=== PATIENT | female | born 2000 | race Caucasian/White ===

== ENCOUNTER 2024-03-26 12:30 | Observation (INO) | payer BC ==
--- NOTE | 2024-03-26 13:32 | ED ---
Female Urogenital HPI - General Chief complaint: Urogenital Stated complaint: Vomiting, back pain, cramping Time Seen by Provider: 03/26/24 13:31 Source: patient, RN notes reviewed Mode of arrival: ambulatory Limitations: no limitations - History of Present Illness Initial comments: 23-year-old female presented to the ER for evaluation of left flank and abdominal pain. She states this started around midnight and has been progressively worsening. She states it feels like someone is stabbing her in the back. She does report it has been painful and difficult to urinate since pains onset. She has tried taking [id number] Advil without relief. She denies any constipation, diarrhea, fevers or chills. Patient reports pain makes her feel nauseous and she has had episodes of emesis since midnight. Patient denies a history of kidney stones, hematuria, hematic emesis, chest pain, shortness of breath, cough, congestion or other complaints. Patient denies . - Related Data Home Medications Medication Instructions Recorded Confirmed Omeprazole [PriLOSEC] 20 mg PO DAILY PRN 03/26/24 03/26/24 Allergies Allergy/AdvReac Type Severity Reaction Status Date / Time No Known Allergies Allergy Verified 03/26/24 15:40 Review of Systems ROS Statement: Those systems with pertinent positive or pertinent negative responses have been documented in the HPI. ROS Other: All systems not noted in ROS Statement are negative. Past Medical History Past Medical History: No Reported History Past Surgical History: No Surgical Hx Reported Smoking Status: Current every day smoker Past Alcohol Use History: Occasional Past Drug Use History: Marijuana General Exam Limitations: no limitations General appearance: alert, in no apparent distress Respiratory exam: Present: normal lung sounds bilaterally. Absent: respiratory distress, wheezes, rales, rhonchi, stridor Cardiovascular Exam: Present: regular rate, normal rhythm, normal heart sounds. Absent: systolic murmur, diastolic murmur, rubs, gallop, clicks GI/Abdominal exam: Present: soft, tenderness (Left lower quadrant), normal bowel sounds Back exam: Present: normal inspection, CVA tenderness (L) Neurological exam: Present: alert, oriented X3, CN II-XII intact Skin exam: Present: warm, dry, intact, normal color. Absent: rash Course Vital Signs 03/26/24 03/26/24 13:05 15:25 Temperature 97.7 F Pulse Rate 78 84 Respiratory 18 18 Rate Blood Pressure 124/76 119/75 O2 Sat by Pulse 100 99 Oximetry - Reevaluation(s) Reevaluation #1: 03/26/24 15:45 Case discussed with on-call urology, Dr. Mcallister for admission. Medical Decision Making - Medical Decision Making Was pt. sent in by a medical professional or institution (, PA, PHARMACY RESOURCE TECH, urgent care, hospital, or residential...) When possible be specific @ -No Did you speak to anyone other than the patient for history (EMS, parent, family, police, friend...)? What history was obtained from this source @ -No Did you review nursing and triage notes (agree or disagree)? Why? @ -I reviewed and agree with nursing and triage notes Were old charts reviewed (outside hosp., previous admission, EMS record, old EKG, old radiological studies, urgent care reports/EKG's, residential records)? Report findings @ -No old charts were reviewed Differential Diagnosis (chest pain, altered mental status, abdominal pain women, abdominal pain men, vaginal bleeding, weakness, fever, dyspnea, syncope, headache, dizziness, GI bleed, back pain, seizure, CVA, palpatations, mental health, musculoskeletal)? @ -Differential Back Pain: Strain, zoster, cauda equina syndrome, epidural abscess, vertebral osteomyelitis, discitis, fracture, subluxation, disc herniation, DJD, spinal stenosis, dissection, AAA, pancreatitis, peptic ulcer disease, pyelonephritis, kidney stone, this is not meant to be an all-inclusive list. EKG interpreted by me (3pts min.). @ -None done X-rays interpreted by me (1pt min.). @ -None done CT interpreted by me (1pt min.). @ -CT abdomen pelvis showing a 3 mm calculus in the urinary bladder with left- sided hydroureteronephrosis. Nonobstructing left renal calculi noted as well. U/S interpreted by me (1pt. min.). @ -None done What testing was considered but not performed or refused? (CT, X-rays, U/S, labs)? Why? @ -None What meds were considered but not given or refused? Why? @ -None Did you discuss the management of the patient with other professionals (professionals i.e. , [facility], PHARMACY RESOURCE TECH, lab, RT, psych nurse, social science instructor, quarter backer, teacher, optics technical officer, case finishing machine adjuster)? Give summary @ -Yes, case discussed with on-call urology, , for admission. Was smoking cessation discussed for >3mins.? @ -No Was critical care preformed (if so, how long)? @ -No Were there social determinants of health that impacted care today? How? (Homelessness, low income, unemployed, alcoholism, drug addiction, transportation, low edu. Level, literacy, decrease access to med. care, assisted, rehab)? @ -Yes, patient has not followed up with a PCP in many years. Was there de-escalation of care discussed even if they declined (Discuss DNR or withdrawal of care, Hospice)? DNR status @ -No What co-morbidities impacted this encounter? (DM, HTN, Smoking, COPD, CAD, Cancer, CVA, ARF, Chemo, Hep., AIDS, mental health diagnosis, sleep apnea, morbid obesity)? @ -None Was patient admitted / discharged? Hospital course, mention meds given and route, prescriptions, significant lab abnormalities, going to OR and other pertinent info. @ -Admitted. 23-year-old female presented to ER for evaluation of left flank pain. Upon rooming, history and physical exam completed. Vitals within normal limits. Left CVA tenderness with left lower quadrant/suprapubic abdominal tenderness to palpation. Normal bowel sounds with no rebound or guarding. Laboratory studies obtained showing a leukocytosis of 19.3 with a left shift. CMP unimpressive. Urinalysis concerning of infection with 14 WBCs and large leukocyte esterases this will be sent for culture. hCG negative. CT abdomen pelvis showing mild left hydroureteronephrosis without obstructing calculus. There is a 3 mm calculus in the urinary bladder. Patient given symptomatic control in the ER with IV fluids, Toradol and Zofran, with improvement. Given concern of UTI and nephrolithiasis admission was considered and discussed with on-call urology, Dr. Mcallister, for IV antibiotics. Blood cultures obtained and patient started on Rocephin. Patient is agreeable for admission. Case discussed with the attending, Dr. Gallagher. Undiagnosed new problem with uncertain prognosis? @ -No Drug Therapy requiring intensive monitoring for toxicity (Heparin, Nitro, Insul in, Cardizem)? @ -No Were any procedures done? @ -No Diagnosis/symptom? @ -Nephrolithiasis/UTI/leukocytosis Acute, or Chronic, or Acute on Chronic? @ -Acute Uncomplicated (without systemic symptoms) or Complicated (systemic symptoms)? @ -Complicated Side effects of treatment? @ -No Exacerbation, Progression, or Severe Exacerbation? @ -No Poses a threat to life or bodily function? How? (Chest pain, USA, CA, pneumonia, PE, COPD, DKA, ARF, appy, cholecystitis, CVA, Diverticulitis, Homicidal, Suicidal, threat to staff... and all critical care pts) @ -Yes, UTI can lead to sepsis and/or endorgan dysfunction - Lab Data Result diagrams: 03/26/24 13:48 03/26/24 13:48 Lab Results 03/26/24 03/26/24 03/26/24 Range/Units 13:48 13:48 13:48 WBC 19.3 H (3.8-10.6) k/uL RBC 4.53 (3.80-5.40) m/uL Hgb 13.4 (11.4-16.0) gm/dL Hct 40.4 (34.0-46.0) % MCV 89.1 (80.0-100.0) fL MCH 29.6 (25.0-35.0) pg MCHC 33.3 (31.0-37.0) g/dL RDW 12.2 (11.5-15.5) % Plt Count 364 (150-450) k/uL MPV 7.0 Neutrophils % 87 % Lymphocytes % 8 % Monocytes % 4 % Eosinophils % 1 % Basophils % 0 % Neutrophils # 16.8 H (1.3-7.7) k/uL Lymphocytes # 1.5 (1.0-4.8) k/uL Monocytes # 0.8 (0-1.0) k/uL Eosinophils # 0.1 (0-0.7) k/uL Basophils # 0.0 (0-0.2) k/uL Sodium (137-145) mmol/L Potassium (3.5-5.1) mmol/L Chloride (98-107) mmol/L Carbon Dioxide (22-30) mmol/L Anion Gap mmol/L BUN (7-17) mg/dL Creatinine (0.52-1.04) mg/dL Est GFR (CKD-EPI)AfAm (>60 ml/min/1.73 sqM) Est GFR (CKD-EPI)NonAf (>60 ml/min/1.73 sqM) Glucose (74-99) mg/dL Plasma Lactic Acid Mario (0.7-2.0) mmol/L Calcium (8.4-10.2) mg/dL Total Bilirubin (0.2-1.3) mg/dL AST (14-36) U/L ALT (4-34) U/L Alkaline Phosphatase (38-126) U/L Total Protein (6.3-8.2) g/dL Albumin (3.5-5.0) g/dL Amylase (30-110) U/L Lipase (23-300) U/L Urine Color Colorless Urine Appearance Clear (Clear) Urine pH 6.0 (5.0-8.0) Ur Specific [place] 1.024 (1.001-1.035) Urine Protein Negative (Negative) Urine Glucose (UA) Negative (Negative) Urine Ketones Trace H (Negative) Urine Blood Negative (Negative) Urine Nitrite Negative (Negative) Urine Bilirubin Negative (Negative) Urine Urobilinogen <2.0 (<2.0) mg/dL Ur Leukocyte Esterase Large H (Negative) Urine RBC 2 (0-5) /hpf Urine WBC 14 H (0-5) /hpf Ur Squamous Epith Cells 3 (0-4) /hpf Urine Bacteria Rare H (None) /hpf Urine Mucus Rare H (None) /hpf Urine HCG, Qual Not Detected (Not Detectd) 03/26/24 03/26/24 Range/Units 13:48 13:48 WBC (3.8-10.6) k/uL RBC (3.80-5.40) m/uL Hgb (11.4-16.0) gm/dL Hct (34.0-46.0) % MCV (80.0-100.0) fL MCH (25.0-35.0) pg MCHC (31.0-37.0) g/dL RDW (11.5-15.5) % Plt Count (150-450) k/uL MPV Neutrophils % % Lymphocytes % % Monocytes % % Eosinophils % % Basophils % % Neutrophils # (1.3-7.7) k/uL Lymphocytes # (1.0-4.8) k/uL Monocytes # (0-1.0) k/uL Eosinophils # (0-0.7) k/uL Basophils # (0-0.2) k/uL Sodium 137 (137-145) mmol/L Potassium 4.5 (3.5-5.1) mmol/L Chloride 104 (98-107) mmol/L Carbon Dioxide 21 L (22-30) mmol/L Anion Gap 12 mmol/L BUN 21 H (7-17) mg/dL Creatinine 0.91 (0.52-1.04) mg/dL Est GFR (CKD-EPI)AfAm >90 (>60 ml/min/1.73 sqM) Est GFR (CKD-EPI)NonAf >90 (>60 ml/min/1.73 sqM) Glucose 105 H (74-99) mg/dL Plasma Lactic Acid Mario 1.0 (0.7-2.0) mmol/L Calcium 9.7 (8.4-10.2) mg/dL Total Bilirubin 0.3 (0.2-1.3) mg/dL AST 22 (14-36) U/L ALT 14 (4-34) U/L Alkaline Phosphatase 126 (38-126) U/L Total Protein 7.3 (6.3-8.2) g/dL Albumin 4.9 (3.5-5.0) g/dL Amylase 60 (30-110) U/L Lipase 73 (23-300) U/L Urine Color Urine Appearance (Clear) Urine pH (5.0-8.0) Ur Specific [place] (1.001-1.035) Urine Protein (Negative) Urine Glucose (UA) (Negative) Urine Ketones (Negative) Urine Blood (Negative) Urine Nitrite (Negative) Urine Bilirubin (Negative) Urine Urobilinogen (<2.0) mg/dL Ur Leukocyte Esterase (Negative) Urine RBC (0-5) /hpf Urine WBC (0-5) /hpf Ur Squamous Epith Cells (0-4) /hpf Urine Bacteria (None) /hpf Urine Mucus (None) /hpf Urine HCG, Qual (Not Detectd) - Radiology Data Radiology results: report reviewed, image reviewed Disposition Clinical Impression: Nephrolithiasis, UTI (urinary tract infection), Neutrophilic leukocytosis Disposition: ADMITTED IP TO THIS HOSP Condition: Stable Referrals: None,Stated [Primary Care Provider] - 1-2 days Time of Disposition: 15:24
[2024-03-26] MEDS: KETOROLAC 15 MG/ML 1 ML VIAL IVP STA (13:52)
[2024-03-26] MEDS: ONDANSETRON 4 MG/2 ML VIAL IVP STA (13:53)
[2024-03-26] MEDS: SODIUM CHLORIDE 0.9% 1,000 ML IV STA (13:53)
[2024-03-26 13:54] LABS: Basophils % (A) 0 %; Eosinophils # (A) 0.1 k/uL (0-0.7); Eosinophils % (A) 1 %; HCT 40.4 % (34.0-46.0); HGB 13.4 gm/dL (11.4-16.0); Lymphocytes # (A) 1.5 k/uL (1.0-4.8); Lymphocytes % (A) 8 %; MCH 29.6 pg (25.0-35.0); MCHC 33.3 g/dL (31.0-37.0); MCV 89.1 fL (80.0-100.0); Monocytes # (A) 0.8 k/uL (0-1.0); Monocytes % (A) 4 %; Neutrophils # (A) 16.8 k/uL (1.3-7.7); Neutrophils % (A) 87 %; Platelet Count 364 k/uL (150-450); RBC 4.53 m/uL (3.80-5.40); RDW 12.2 % (11.5-15.5); WBC 19.3 k/uL (3.8-10.6)
[2024-03-26 14:14] LABS: Appearance,Urine Clear (Clear); Bacteria,Urine Rare /hpf; Bilirubin,Urine Negative (Negative); Blood,Urine Negative (Negative); Color,Urine Colorless; Glucose,Urine (UA) Negative (Negative); Ketones,Urine Trace (Negative); Leukocyte Esterase,Urine Large (Negative); Mucus,Urine Rare /hpf; Nitrite,Urine Negative (Negative); Protein,Urine Negative (Negative); RBC,Urine 2 /hpf (0-5); Specific Gravity,Urine 1.024 (1.001-1.035); Squamous Epithelial Cell,Urine 3 /hpf (0-4); Urobilinogen,Urine <2.0 mg/dL (<2.0); WBC,Urine 14 /hpf (0-5)
[2024-03-26 14:21] LABS: ALT 14 U/L (4-34); AST 22 U/L (14-36); African American GFR (CKD) >90 (>60 ml/min/1.73 sqM); Albumin 4.9 g/dL (3.5-5.0); Alkaline Phosphatase 126 U/L (38-126); Amylase 60 U/L (30-110); Anion Gap 12 mmol/L; Blood Urea Nitrogen 21 mg/dL (7-17); Calcium 9.7 mg/dL (8.4-10.2); Carbon Dioxide 21 mmol/L (22-30); Chloride 104 mmol/L (98-107); Glucose 105 mg/dL (74-99); Lipase 73 U/L (23-300); Non-African American GFR(CKD) >90 (>60 ml/min/1.73 sqM); Potassium 4.5 mmol/L (3.5-5.1); Sodium 137 mmol/L (137-145); Total Bilirubin 0.3 mg/dL (0.2-1.3); Total Protein 7.3 g/dL (6.3-8.2)
--- NOTE | 2024-03-26 15:04 | CT ---
EXAMINATION TYPE: CT abdomen pelvis w con CT DLP: 599.7 mGycm, Automated exposure control for dose reduction was used. DATE OF EXAM: 03/26/2024 2:58 PM COMPARISON: None CLINICAL INDICATION:Female, 23 years old with history of left flank pain; Left flank pain x 15 hours TECHNIQUE: Standard CT of the abdomen and pelvis following the administration of 100 cc of Isovue 3 00 IV contrast material. Coronal and sagittal reformats were performed. FINDINGS: LOWER CHEST: Unremarkable ABDOMEN LIVER: Unremarkable GALLBLADDER AND BILE DUCTS: Unremarkable. PANCREAS: Unremarkable. SPLEEN: Unremarkable. ADRENAL GLANDS: Unremarkable. KIDNEYS AND URETERS: No right renal calculus or hydronephrosis. Mild left hydroureteronephrosis witho ut obstructing calculus. Couple of nonobstructive left renal calculi measuring up to 3 mm. Delayed ne phrographic phase of the left kidney. Minimal left perinephric fat stranding. Contrast is demonstrate d within both collecting systems and into the mid bilateral ureters. PELVIS BLADDER: Layering 3 mm calculus within the midline of the urinary bladder. REPRODUCTIVE: Unremarkable. ABDOMEN & PELVIS STOMACH AND BOWEL: Stomach and duodenum are unremarkable. The appendix is within normal limits. No fo ian bowel wall thickening or surrounding inflammatory changes. No evidence of bowel obstruction. PERITONEUM: No evidence of pneumoperitoneum or free fluid. VASCULATURE: No evidence of aortic aneurysm. MUSCULOSKELETAL: No acute osseous abnormalities LYMPH NODES: No evidence for lymphadenopathy. SOFT TISSUE/ABDOMINAL WALL: Unremarkable IMPRESSION: 1. Mild left hydroureteronephrosis without obstructing calculus. There is a 3 mm calculus identified layering within the urinary bladder likely representing recently passed calculus from the left urete r. 2. Couple of nonobstructive left renal calculi. [facility], , 03/26/2024 3:02 PM
[2024-03-26] MEDS ORDERED: ONDANSETRON 4 MG/2 ML VIAL IVP PRN (15:44)
[2024-03-26] MEDS ORDERED: NALOXONE 0.4 MG/ML 1 ML VIAL IV PRN (15:44)
[2024-03-26] MEDS ORDERED: ACETAMINOPHEN TAB 325 MG TAB PO PRN (15:44)
[2024-03-26] MEDS: cefTRIAXone IN SWFI 1,000 MG/10 ML SYRINGE IVP ONE (16:38)
[2024-03-26] MEDS: SODIUM CHLORIDE 0.9% 1,000 ML IV SCH (16:39)
[2024-03-26] MEDS: KETOROLAC 15 MG/ML 1 ML VIAL IVP PRN (18:31)
[2024-03-27 00:07] VITALS: PULSE 68
[2024-03-27 03:48] LABS: HCG,Qualitative Serum Not Detected
[2024-03-27 07:47] VITALS: BP 104/69; RESP 14; TEMP 98
[2024-03-27 08:34] LABS: Blood Urea Nitrogen 15.6 mg/dL (9.0-27.0); Calcium 8.8 mg/dL (8.7-10.3); Carbon Dioxide 20.5 mmol/L (21.6-31.8); Chloride 106 mmol/L (96-109); Glucose 91 mg/dL (70-110); Potassium 4.1 mmol/L (3.5-5.5); Sodium 139 mmol/L (135-145)
[2024-03-27 08:38] LABS: Basophils # (A) 0.02 X 10*3/uL (0.00-0.10); Basophils % (A) 0.2 %; Eosinophils # (A) 0.05 X 10*3/uL (0.04-0.35); Eosinophils % (A) 0.4 %; HCT 36.2 % (37.2-46.3); HGB 11.8 g/dL (12.0-15.0); Lymphocytes # (A) 2.87 X 10*3/uL (0.90-5.00); Lymphocytes % (A) 24.7 %; MCH 29.3 pg (27.0-32.0); MCHC 32.6 g/dL (32.0-37.0); MCV 89.8 FL (80.0-97.0); Mean Platelet Volume 10.3 FL (9.5-12.2); Monocytes # (A) 0.67 X 10*3/uL (0.20-1.00); Monocytes % (A) 5.8 %; NRBC Per 100 WBC 0 X 10*3/uL (0.00-0.01); Neutrophils # (A) 7.96 X 10*3/uL (1.80-7.70); Neutrophils % (A) 68.4 %; Platelet Count 324 X 10*3/uL (140-440); RBC 4.03 X 10*6/uL (4.10-5.20); RDW 12.1 % (11.5-14.5); WBC 11.63 X 10*3/uL (4.50-10.00)
--- NOTE | 2024-03-27 13:06 | P.GSHP ---
History of Present Illness H&P Date: 03/27/24 Chief Complaint: Left ureteral stone, UTI This is a 23-year-old female presented to the hospital with left sided flank pain. Underwent a CT abdomen and pelvis that showed evidence of a 3 mm stone within the bladder and mild left-sided hydronephrosis. No previous history of kidney stones. Indicates pain is associated with nausea and vomiting. Denies any dysuria or gross hematuria. She does not have family history of kidney stones. This morning on evaluation she is having mild pain but it is improved compared to presentation. Hemodynamically she stable overnight, no fevers. Urinalysis on presentation was positive for leukocyte Estrace. - Constitutional Constitutional: Denies chills, Denies fever - EENT Ears, nose, mouth and throat: Denies headache, Denies sore throat - Cardiovascular Cardiovascular: Denies chest pain, Denies shortness of breath - Respiratory Respiratory: Denies cough, Denies 7 - Gastrointestinal Gastrointestinal: Reports abdominal pain, Reports nausea, Reports vomiting Past Medical History Past Medical History: GERD/Reflux History of Any Multi-Drug Resistant Organisms: None Reported Past Surgical History: No Surgical Hx Reported Smoking Status: Vaper Past Alcohol Use History: Occasional Past Drug Use History: Marijuana Additional Drug Use History / Comment(s): patient vapes daily, social drinker. Medications and Allergies Home Medications Medication Instructions Recorded Confirmed Type Omeprazole [PriLOSEC] 20 mg PO DAILY PRN 03/26/24 03/26/24 History Cephalexin [Keflex] 500 mg PO Q8HR #15 cap 03/27/24 Rx Ketorolac [Toradol] 10 mg PO Q6HR PRN #15 tab 03/27/24 Rx Allergies Allergy/AdvReac Type Severity Reaction Status Date / Time No Known Allergies Allergy Verified 03/26/24 15:40 Surgical - Exam Vital Signs Temp Pulse Resp BP Pulse Ox 97.7 F 78 18 124/76 100 03/26/24 13:05 03/26/24 13:05 03/26/24 13:05 03/26/24 13:05 03/26/24 13:05 - General no distress, moderate pain - Eyes normal ocular movement, no pale - ENT normal nares, normal mucosa - Respiratory normal expansion, normal respiratory effort - Abdomen Abdomen: soft, non tender, no distended - Psychiatric oriented to time, oriented to person, oriented to place Results - Labs 03/27/24 02:40 03/27/24 02:40 Abnormal Lab Results - Last 24 Hours (Table) 03/26/24 03/26/24 03/26/24 Range/Units 13:48 13:48 13:48 WBC 19.3 H (3.8-10.6) k/uL RBC (4.10-5.20) X 10*6/uL Hgb (12.0-15.0) g/dL Hct (37.2-46.3) % Immature Gran # (0.00-0.04) X 10*3/uL Neutrophils # 16.8 H (1.3-7.7) k/uL Carbon Dioxide 21 L (22-30) mmol/L Anion Gap (4.00-12.00) mmol/L BUN 21 H (7-17) mg/dL Creatinine (0.6-1.5) mg/dL BUN/Creatinine Ratio (12.00-20.00) Ratio Glucose 105 H (74-99) mg/dL Urine Ketones Trace H (Negative) Ur Leukocyte Esterase Large H (Negative) Urine WBC 14 H (0-5) /hpf Urine Bacteria Rare H (None) /hpf Urine Mucus Rare H (None) /hpf 03/27/24 03/27/24 Range/Units 02:40 02:40 WBC 11.63 H (3.8-10.6) k/uL RBC 4.03 L (4.10-5.20) X 10*6/uL Hgb 11.8 L (12.0-15.0) g/dL Hct 36.2 L (37.2-46.3) % Immature Gran # 0.06 H (0.00-0.04) X 10*3/uL Neutrophils # 7.96 H (1.3-7.7) k/uL Carbon Dioxide 20.5 L (22-30) mmol/L Anion Gap 12.50 H (4.00-12.00) mmol/L BUN (7-17) mg/dL Creatinine 0.5 L (0.6-1.5) mg/dL BUN/Creatinine Ratio 31.20 H (12.00-20.00) Ratio Glucose (74-99) mg/dL Urine Ketones (Negative) Ur Leukocyte Esterase (Negative) Urine WBC (0-5) /hpf Urine Bacteria (None) /hpf Urine Mucus (None) /hpf Diabetes panel 03/26/24 03/27/24 Range/Units 13:48 02:40 Sodium 137 139 (137-145) mmol/L Potassium 4.5 4.1 (3.5-5.1) mmol/L Chloride 104 106 (98-107) mmol/L Carbon Dioxide 21 L 20.5 L (22-30) mmol/L BUN 21 H 15.6 (7-17) mg/dL Creatinine 0.91 0.5 L (0.52-1.04) mg/dL Glucose 105 H 91 (74-99) mg/dL Calcium 9.7 8.8 (8.4-10.2) mg/dL AST 22 (14-36) U/L ALT 14 (4-34) U/L Alkaline Phosphatase 126 (38-126) U/L Total Protein 7.3 (6.3-8.2) g/dL Albumin 4.9 (3.5-5.0) g/dL Calcium panel 03/26/24 03/27/24 Range/Units 13:48 02:40 Calcium 9.7 8.8 (8.4-10.2) mg/dL Albumin 4.9 (3.5-5.0) g/dL Pituitary panel 03/26/24 03/27/24 Range/Units 13:48 02:40 Sodium 137 139 (137-145) mmol/L Potassium 4.5 4.1 (3.5-5.1) mmol/L Chloride 104 106 (98-107) mmol/L Carbon Dioxide 21 L 20.5 L (22-30) mmol/L BUN 21 H 15.6 (7-17) mg/dL Creatinine 0.91 0.5 L (0.52-1.04) mg/dL Glucose 105 H 91 (74-99) mg/dL Calcium 9.7 8.8 (8.4-10.2) mg/dL Adrenal panel 03/26/24 03/27/24 Range/Units 13:48 02:40 Sodium 137 139 (137-145) mmol/L Potassium 4.5 4.1 (3.5-5.1) mmol/L Chloride 104 106 (98-107) mmol/L Carbon Dioxide 21 L 20.5 L (22-30) mmol/L BUN 21 H 15.6 (7-17) mg/dL Creatinine 0.91 0.5 L (0.52-1.04) mg/dL Glucose 105 H 91 (74-99) mg/dL Calcium 9.7 8.8 (8.4-10.2) mg/dL Total Bilirubin 0.3 (0.2-1.3) mg/dL AST 22 (14-36) U/L ALT 14 (4-34) U/L Alkaline Phosphatase 126 (38-126) U/L Total Protein 7.3 (6.3-8.2) g/dL Albumin 4.9 (3.5-5.0) g/dL Assessment and Plan Assessment: 23-year-old female 3 mm stone which as she has passed, I reviewed the CT the stone is within the bladder. Urinalysis on presentation was also concerning for UTI. Pain has improved this morning. -Discharge home today on Keflex -Follow-up as an outpatient in 1 week
--- NOTE | 2024-03-27 13:07 | P.DS ---
Providers Date of admission: 03/26/24 15:55 Attending physician: Jamie Mcallister MD Primary care physician: Stated None Hospital Course: This is a 23-year-old female admitted to the hospital with a UTI, and mild left- sided hydronephrosis secondary to a recently passed stone in the bladder. She was admitted to the hospital for pain control and IV antibiotics. Pain did improve following day. She was discharged home on Keflex. At time of discharge she was tolerating a diet, ambulating, pain was controlled Patient Condition at Discharge: Stable Plan - Discharge Summary Discharge Rx Participant: Yes New Discharge Prescriptions: New Cephalexin [Keflex] 500 mg PO Q8HR #15 cap Ketorolac [Toradol] 10 mg PO Q6HR PRN #15 tab PRN Reason: Pain No Action Omeprazole [PriLOSEC] 20 mg PO DAILY PRN PRN Reason: Gi Upset Discharge Medication List Omeprazole [PriLOSEC] 20 mg PO DAILY PRN 03/26/24 [History] Cephalexin [Keflex] 500 mg PO Q8HR #15 cap 03/27/24 [Rx] Ketorolac [Toradol] 10 mg PO Q6HR PRN #15 tab 03/27/24 [Rx] Follow up Appointment(s)/Referral(s): Jamie Mcallister MD [STAFF PHYSICIAN] - 1 Week None,Stated [Primary Care Provider] - 1-2 days Discharge Disposition: HOME SELF-CARE
== END 2024-03-27 13:52 | disposition home or self-care (01) ==
LOC: EC 12:30 → 6NMEDSUR 15:55
PROVIDERS: ADMIT Urology; ATTEND Urology
DX: N13.6 Pyonephrosis (principal); N21.0 Calculus in bladder; F17.290 Nicotine dependence, other tobacco product, uncomplicated
CPT/HCPCS: 96376 ×2; 96365; 96361; 96374; 96375; 99285; 36415; 80053; 80048; 82150; 83605; 83690; 85025 ×2; 81001; 81025; 84703; 87040; 87086; 84145; 74177; G0378 ×2; J2405; J0696 ×2; J1885 ×2; Q9967